=== PATIENT | female | born 1990 | race American Indian/Alaskan Native ===

== ENCOUNTER 2016-08-10 11:39 | Inpatient (IN) | payer MEDICAID ==
[2016-08-10] MEDS ORDERED: BRETHINE IVP PRN (13:57)
[2016-08-10] MEDS ORDERED: BRETHINE SUB-Q PRN (13:57)
[2016-08-10] MEDS ORDERED: XYLOCAINE 2% INFILTRATI ONE (13:57)
[2016-08-10] MEDS ORDERED: MINERAL OIL PO PRN (13:57)
[2016-08-10] MEDS ORDERED: SUBLIMAZE IV PRN (13:57)
[2016-08-10] MEDS ORDERED: ePHEDrine SULFATE IV PRN (13:57)
[2016-08-10] MEDS ORDERED: PITOCin/NS 20 UNIT/1000ML DRIP 20 UNITS/1,000 ML BAG IV SCH (14:00)
[2016-08-10] MEDS ORDERED: PITOCin/NS 30 UNIT/500ML 30 UNITS/500 ML BAG IV SCH (14:00)
[2016-08-10] MEDS ORDERED: LACTATED RINGERS 1,000 ML IV SCH (14:00)
--- NOTE | 2016-08-10 14:43 | History and Physical Report ---
History of Present Illness Date of examination: 08/10/16 Date of admission: 08/10/16 14:00 Chief complaint: my water broke History of present illness: 25 y/o , now with rupture of membranes at 37 + weeks. care at [facility] since 11 weeks gestation. GBS Neg. HSV2 +. Past History Past Medical History: no pertinent history Past Surgical History: no surgical history [employer] History: herpes, trichomonas Family/Genetic History: diabetes Social history: no significant social history - Obstetrical History Expected Date of Delivery: 08/26/16 Actual Gestation: 37 Week(s) 5 Day(s) : 4 Number of Pregnancies: 2 Spontaneous Abortions: 1 Induced : 0 Number of Living Children: 2 Medications and Allergies Allergies Allergy/AdvReac Type Severity Reaction Status Date / Time No Known Allergies Allergy Verified 08/10/16 12:08 Active Meds: Active Medications Fentanyl (Sublimaze) 100 mcg IV Q2H PRN PRN Reason: Labor Pain Lactated Ringer's (Lactated Ringers) 1,000 mls @ 125 mls/hr IV DIRECT MARLO Oxytocin/Sodium Chloride (Pitocin/Ns 20 Unit/1000ml Drip) 20 units in 1,000 mls @ 125 mls/hr IV DIRECT MARLO Oxytocin/Sodium Chloride (Pitocin/Ns 30 Unit/500ml) 30 units in 500 mls @ 4 mls /hr IV TITR MARLO PRN Reason: Protocol Mineral Oil (Mineral Oil) 30 ml PO QHS PRN PRN Reason: Constipation Review of Systems All systems: negative - Vital Signs Vital signs: Vital Signs Pulse Pulse Ox 68 99 08/10/16 12:03 08/10/16 12:03 Temp Pulse Resp BP Pulse Ox 97.2 F L 71 20 123/78 99 08/10/16 12:10 08/10/16 14:36 08/10/16 12:10 08/10/16 14:36 08/10/16 13:48 - Physical Exam Breasts: Positive: deferred Cardiovascular: Regular rate Lungs: Positive: Clear to auscultation Abdomen: Positive: soft Genitourinary (Female): Positive: normal external genitalia Vulva: both: normal Vagina: Positive: normal moisture Uterus: Positive: enlarged Anus/Rectum: Positive: normal perianal skin Extremities: Positive: normal Deep Tendon Reflex Grade: Normal +2 - Obstetrical FHR: category 1 Uterine Contraction Monitor Mode: External Cervical Dilatation: 2 Cervical Effacement Percentage: 70 station: -1 Uterine Contraction Pattern: Irregular Uterine Contraction Intensity: Mild Results All other labs normal. Assessment and Plan A: IUP @ 37 + weeks, with SROM P: Pitocin augmentation EXpect
[2016-08-10 15:59] LABS: Hematocrit 33.6 % (30.3-42.9); Hemoglobin 11.3 gm/dl (10.1-14.3); Mean Corpuscular HGB Conc 34 % (30-34); Mean Corpuscular Hemoglobin 32 pg (28-32); Mean Corpuscular Volume 94 fl (79-97); Platelet Count 157 K/mm3 (140-440); Red Blood Count 3.57 M/mm3 (3.65-5.03); Red Cell Distribution Width 13.8 % (13.2-15.2); White Blood Count 7.5 K/mm3 (4.5-11.0)
[2016-08-10] MEDS ORDERED: TYLENOL PO PRN (18:19)
[2016-08-10] MEDS ORDERED: PHENERGAN PO PRN (18:19)
[2016-08-10] MEDS ORDERED: ZOFRAN IV PRN (18:19)
[2016-08-10] MEDS ORDERED: DERMOPLAST TP PRN (18:19)
[2016-08-10] MEDS ORDERED: NORCO 5/325 PO PRN (18:19)
[2016-08-10] MEDS ORDERED: BENADRYL PO PRN (18:19)
--- NOTE | 2016-08-10 18:26 | Procedure Note ---
OB Delivery Note - Delivery Date of Delivery: 08/10/16 Surgeon: ENMANUEL CASTILLO Estimated blood loss: 100cc - Vaginal Delivery presentation: vertex Delivery position: OA Delivery induction: none Delivery augmentation: pitocin Delivery monitor: external FHT, external uterine Route of delivery: Delivery placenta: spontaneous Delivery cord: 3 umbilical vessels Episiotomy: none Delivery laceration: none Anesthesia: intravenous Delivery comments: of a viable male 5#-14oz on 08/10/2016 @ 1806 over intact perineum. Placenta delivered 3 VCI. FF @ U-2. 8/9. EBL 100cc. - Infant A at 1 minute: 8 (5#-14oz) at 5 minutes: 9 Gender: Male
[2016-08-10] MEDS ORDERED: SODIUM CHLORIDE FLUSH SYRINGE 10 ML IV SCH (19:00)
[2016-08-10] MEDS: MOTRIN PO SCH (22:31)
[2016-08-10] MEDS ORDERED: TUCKS PAD TP PRN (22:42)
[2016-08-11 04:59] LABS: Hematocrit 30.5 % (30.3-42.9); Hemoglobin 10.4 gm/dl (10.1-14.3)
[2016-08-11] MEDS ORDERED: BOOSTRIX IM ONE (06:00)
[2016-08-11] MEDS: MOTRIN PO SCH ×3 (06:21→17:38)
--- NOTE | 2016-08-11 10:08 | Progress Note ---
Assessment and Plan A:PP Day #1 Stable P: Follow Routine Orders D/C home today per patient request Depo Provera prior to discharge RTO in 4 Weeks Subjective - Subjective Date of service: 08/11/16 Patient reports: appetite normal, voiding normally, pain well controlled, flatus , ambulating normally : doing well, bottle feeding (and ) Objective - Vital Signs Latest vital signs: Vital Signs Temp Pulse Pulse Resp BP BP Pulse Ox 08/11/16 09:15 97.6 F 62 20 112/75 08/11/16 05:00 98.7 F 61 20 104/55 08/11/16 00:55 97.4 F L 65 20 121/70 08/10/16 21:00 98.0 F 65 20 121/70 08/10/16 19:26 72 141/83 08/10/16 19:12 59 L 143/81 08/10/16 19:04 62 121/82 08/10/16 18:26 66 140/86 08/10/16 17:51 20 08/10/16 17:22 62 158/84 08/10/16 17:06 75 148/104 08/10/16 16:51 68 140/86 08/10/16 16:36 65 123/75 08/10/16 16:20 66 126/84 08/10/16 16:05 63 118/80 08/10/16 15:51 68 129/87 08/10/16 15:39 67 125/75 08/10/16 14:51 75 147/84 08/10/16 14:36 71 123/78 08/10/16 14:20 63 133/81 08/10/16 14:05 62 147/72 08/10/16 13:48 69 99 08/10/16 13:43 69 100 08/10/16 13:38 66 100 08/10/16 13:33 77 100 08/10/16 13:28 75 100 08/10/16 13:23 66 100 08/10/16 13:18 71 100 08/10/16 13:13 63 100 08/10/16 13:08 65 100 08/10/16 13:03 69 100 08/10/16 12:58 61 100 08/10/16 12:53 63 99 08/10/16 12:48 62 100 08/10/16 12:43 64 99 08/10/16 12:38 79 99 08/10/16 12:33 63 100 08/10/16 12:28 64 99 08/10/16 12:23 64 99 08/10/16 12:18 64 99 08/10/16 12:13 71 99 08/10/16 12:11 65 120/72 08/10/16 12:10 97.2 F L 65 20 120/72 08/10/16 12:08 67 100 08/10/16 12:03 68 99 Intake and Output 08/10/16 08/11/16 08/11/16 22:59 06:59 14:59 Intake Total 240 480 120 Output Total 500 300 Balance 240 -20 -180 Intake: Oral 240 480 120 Output: Urine 500 300 Void 500 300 Other: Total, Intake Amount 240 240 120 Total, Output Amount 300 300 Estimated Blood Loss 100 - Exam Breasts: Present: normal Cardiovascular: Present: Regular rate Lungs: Present: Clear to auscultation, Normal air movement Abdomen: Present: normal appearance, soft, normal bowel sounds Uterus: Present: normal, firm, fundal height below umbilicus Extremities: Present: normal - Labs Labs: Abnormal lab results 08/10/16 Range/Units 14:59 RBC 3.57 L (3.65-5.03) M/mm3
--- NOTE | 2016-08-11 10:10 | Discharge Summary ---
Providers - Providers Date of Admission: 08/10/16 14:00 Date of discharge: 08/11/16 Attending physician: THOMAS ROWE MD Primary care physician: THOMAS ROWE MD Hospitalization Reason for admission: rupture of membranes Delivery: Episiotomy: none Laceration: none Other procedures: none complications: none Discharge diagnosis: IUP at term delivered baby: male Condition at discharge: Good Disposition: DISCHARGED TO HOME OR SELFCARE Plan - Provider Discharge Summary Activity: routine, no sex for 6 weeks, no heavy lifting 4 weeks, no strenuous exercise Diet: routine Instructions: routine Additional instructions: [] Smoking cessation referral if applicable(refer to patient education folder for contact #) [] Refer to [facility]'s [facility] Booklet Call your doctor immediately for: * Fever > 100.5 * Heavy vaginal bleeding ( >1 pad per hour) * Severe persistent headache * Shortness of breath * Reddened, hot, painful area to leg or breast * Drainage or odor from incision. * Keep incision clean and dry at all times and follow doctor's instructions regarding bathing/showering - Follow up plan Follow up: ENMANUEL CASTILLO CNM [Advanced Practice Nurse] - 09/09/16
[2016-08-11] MEDS ORDERED: DEPO-PROVERA (CONTRACEPTION) IM NR (10:30)
[2016-08-11 21:31] VITALS: BP 127/77
== END 2016-08-11 22:00 | disposition home or self-care (01) | DRG 775 ==
LOC: TRG 11:39 → LD 14:00 → OB 20:23
PROVIDERS: ADMIT Obstetrics & Gynecology; ATTEND Obstetrics & Gynecology
PROC: 10E0XZZ Delivery of Products of Conception, External Approach (ICD-10-PCS; principal; 2016-08-10)
DX: O80 Encounter for full-term uncomplicated delivery (principal); Z3A.37 37 weeks gestation of pregnancy; Z37.0 Single live birth; Z83.3 Family history of diabetes mellitus
CPT/HCPCS: 36415; 85014; 85018; 85027; 86850; 86900; 86901; 90471; 90715; 99211; G0463; J1050; J2590; J3010; J7120